=== PATIENT | female | born 1935 | race Caucasian/White ===

== ENCOUNTER 2016-11-12 10:48 | Day surgery (SDC) | payer MEDICARE, OTHER ==
[~2016-11-12 10:48] MED LIST: Acetaminophen TAB* 325 MG PO PRN; Buffered Lidocaine 0.9% SYRIN* 5 ML/SYR SYRINGE INTRADERM ONE
[2016-11-12] MEDS ORDERED: Midazolam* 1 MG/ML 2 ML VIAL (2 MG) ONE (11:57)
[2016-11-12 12:45] VITALS: BP 188/66
--- NOTE | 2016-11-12 13:24 | OP ---
DATE OF OPERATION: 11/12/2016 - [facility] DATE OF : 1935. SURGEON: Js Molina M.D. PREOPERATIVE DIAGNOSIS: Cataract left eye. POSTOPERATIVE DIAGNOSIS: Cataract left eye. OPERATIVE PROCEDURE: Phacoemulsification left eye with IOL. DESCRIPTION OF PROCEDURE: The patient was brought to the operating room after being given 1/2% Alcaine with epinephrine drops in the preoperative area. The eye was prepped and draped in the usual sterile fashion. Sterile drape and eyelid speculum were placed. Again, topical 1/2% Alcaine with epinephrine was given. A paracentesis incision was made at the 3 o'clock position with the No.75 blade. Clear cornea incision 2.2 x 2.2-mm was created at the 6 o'clock position starting at the anterior limbus using the 2.2-mm keratome. The anterior chamber was irrigated with 0.4 mL of 1% non-preservative intracameral lidocaine and filled with DisCoVisc. A capsulorrhexis was completed using the cystotome and the Utrata forceps. Hydrodissection was performed with balanced salt solution. The lens nucleus was removed with the Phacoemulsification handpiece without incident. Cortex was removed with the irrigation-aspiration handpiece. The capsular bag was re-inflated using DisCoVisc and an SN60WF 18.5 implant was inserted with the shooter. The irrigation-aspiration handpiece was used to remove all residual DisCoVisc. The eye was refilled with balanced salt solution and the wound checked and found to be watertight. Topical Maxitrol drops were given. [id number]/[facility] #: [id number] [facility]
[2016-11-12] MEDS ORDERED: Neomycin/Polymy/Dex OPTH.SUSP* MAXITROL 0.1% 5 ML ONE (14:02)
[2016-11-12] MEDS ORDERED: Proparacaine 0.5% OPHTH.SOL* 15 ML BTL ONE (14:02)
[2016-11-12] MEDS ORDERED: Ketorolac 0.5% OPHTH (NF) 0.5 % 5 ML BTL ONE (14:02)
[2016-11-12] MEDS ORDERED: Cyclopentolate 1% OPTH.SOL* 2 ML BTL ONE (14:02)
[2016-11-12] MEDS ORDERED: Phenylephrine 2.5% OPTH.SOL* 2 ML BTL ONE (14:02)
[2016-11-12] MEDS ORDERED: acetaZOLAMIDE TAB* 250 MG ONE (14:02)
[2016-11-12] MEDS ORDERED: Buffered Lidocaine 0.9% SYRIN* 5 ML/SYR SYRINGE ONE (14:02)
[2016-11-12] MEDS ORDERED: Lidocaine 1% MPF* 2 ML VIAL ONE (14:02)
[2016-11-12] MEDS ORDERED: Povidone Iodine 5% OPTH* 30 ML BTL ONE (14:02)
== END 2016-11-12 12:53 | disposition home or self-care (01) ==
LOC: OREAST 10:48
PROVIDERS: ATTEND Specialist
DX: H25.812 Combined forms of age-related cataract, left eye (principal); H34.8122 Central retinal vein occlusion, left eye, stable; H43.813 Vitreous degeneration, bilateral; I10 Essential (primary) hypertension; I48.91 Unspecified atrial fibrillation; I25.2 Old myocardial infarction; E03.9 Hypothyroidism, unspecified
CPT/HCPCS: A9270-GY; J2250; V2632

== ENCOUNTER 2019-10-18 21:18 | Observation (INO) ==
[2019-10-18 21:45] LABS: ABS Eosinophils 0.2 10^3/ul (0-0.6); ABS Lymphocytes 1.6 10^3/ul (1.0-4.8); ABS Monocytes 0.6 10^3/ul (0-0.8); ABS Neutrophils 2.4 10^3/ul (1.5-7.7); Eosinophil % 3.2 %; Hematocrit 38 % (35-47); Hemoglobin 12.8 g/dL (12.0-16.0); Lymphocyte % 33.8 %; Mean Corpuscular HGB Conc 34 g/dL (31-36); Mean Corpuscular Hemoglobin 32 pg (27-31); Mean Corpuscular Volume 93 fL (80-97); Mean Platelet Volume 8.1 fL (7.4-10.4); Platelet Count 253 10^3/uL (150-450); Red Blood Count 4.06 10^6 /uL (3.70-4.87); Red Cell Distribution Width 15 % (10-15); White Blood Count 4.8 10^3/uL (3.5-10.8)
[2019-10-18] MEDS: NS 0.9% 1000 ml BAG 1,000 ML IV SCH (21:56)
[2019-10-18 22:03] LABS: Albumin 3.4 g/dL (3.2-5.2); Albumin/Globulin Ratio 1.1 (1-3); C Reactive Protein 9.77 mg/L (<8.01); Calcium 9.3 mg/dL (8.6-10.3); EGFR African American 81.3 (>60); EGFR Non-African American 67.2 (>60); Globulin 3.1 g/dL (2-4); Total Bilirubin 0.2 mg/dL (0.2-1.0); Total Protein 6.5 g/dL (6.4-8.9)
[2019-10-18 22:04] LABS: Troponin I 0.01 ng/mL (<0.03)
[2019-10-18 22:07] LABS: Potassium 3.9 mmol/L (3.5-5.0)
[2019-10-18 22:39] LABS: TSH Ultra Thyroid Stim Horm 4.26 mcIU/mL (0.34-5.60)
[2019-10-19 02:46] LABS: Urine Appearance Cloudy; Urine Bilirubin Negative (Negative); Urine Blood Negative (Negative); Urine Color Yellow; Urine Glucose Negative (Negative); Urine Ketones Negative (Negative); Urine Nitrite Negative (Negative); Urine Protein Negative (Negative); Urine Specific Gravity 1.018 (1.010-1.030); Urine Urobilinogen Negative (Negative)
[2019-10-19 02:49] LABS: Urine Bacteria 1+ (Absent); Urine Red Blood Cell 2+(6-10/hpf) (Absent); Urine Squamous Epithelial Cell Present (Absent); Urine White Blood Cell 2+(11-20/hpf) (Absent)
[2019-10-19] MEDS: NS 0.9% 1000 ml BAG 1,000 ML IV SCH (05:35)
[2019-10-19] MEDS ORDERED: SOTALOL 120 MG PO SCH (09:00)
[2019-10-19] MEDS: CMCS:Dabigatran 150 mg CAP (NF) PO SCH ×2 (09:53→23:28)
[2019-10-19] MEDS: Aspirin EC 81 mg TAB.EC (enteric coated) PO SCH (09:53)
[2019-10-19] MEDS: Multivitamins/Minerals TAB PO SCH ×2 (09:53→21:52)
[2019-10-19] MEDS: Coenzyme Q10 CAP (NF) ** ENTER STREGNTH IN LABEL DIRECTIONS PO SCH (10:12)
[2019-10-19] MEDS: hydrALAZINE 20 mg/ml 1 ML Vial IV IV SLOW PU PRN (18:01)
[2019-10-19] MEDS ORDERED: Al Hydrox/Mg Hydrox/Simet LIQ 30 ML UDC PO ONE (18:34)
[2019-10-20] MEDS: hydrALAZINE 20 mg/ml 1 ML Vial IV IV SLOW PU PRN (03:33)
[2019-10-20 06:23] LABS: Hematocrit 34 % (35-47); Hemoglobin 11.8 g/dL (12.0-16.0); Mean Corpuscular HGB Conc 35 g/dL (31-36); Mean Corpuscular Hemoglobin 32 pg (27-31); Mean Corpuscular Volume 92 fL (80-97); Mean Platelet Volume 8.2 fL (7.4-10.4); Platelet Count 224 10^3/uL (150-450); Red Blood Count 3.74 10^6 /uL (3.70-4.87); Red Cell Distribution Width 14 % (10-15); White Blood Count 4.8 10^3/uL (3.5-10.8)
[2019-10-20 06:35] LABS: BUN/Creatinine Ratio 17.6 (8-20); Calcium 8.8 mg/dL (8.6-10.3); EGFR African American 90.3 (>60); EGFR Non-African American 74.6 (>60); Potassium 3.7 mmol/L (3.5-5.0)
[2019-10-20] MEDS ORDERED: hydrALAZINE 20 mg/ml 1 ML Vial IV IV SLOW PU ONE (08:00)
[2019-10-20] MEDS: CMCS:Dabigatran 150 mg CAP (NF) PO SCH (08:30)
[2019-10-20] MEDS: Multivitamins/Minerals TAB PO SCH (08:30)
[2019-10-20] MEDS: Aspirin EC 81 mg TAB.EC (enteric coated) PO SCH (08:34)
[2019-10-20] MEDS: Coenzyme Q10 CAP (NF) ** ENTER STREGNTH IN LABEL DIRECTIONS PO SCH (08:57)
[2019-10-20 11:19] VITALS: BP 150/69
[2019-10-20] MEDS ORDERED: Regadenoson 0.4 MG/5 ML SYRINGE ONE (11:23)
== END 2019-10-20 14:55 | disposition home or self-care (01) ==
LOC: MEDTELE 21:18 → ED 21:18 → MEDTELE 10-19 01:54
PROVIDERS: ADMIT Hospitalist; ATTEND Internal Medicine

== ENCOUNTER 2024-04-02 08:36 | Observation (INO) ==
[2024-04-02 09:11] LABS: ABS Basophils 0.1 10^3/uL (0.0-0.1); ABS Eosinophils 0.2 10^3/uL (0.0-0.5); ABS Lymphocytes 1.8 10^3/uL (1.0-4.8); ABS Monocytes 0.5 10^3/uL (0.0-0.9); ABS Neutrophils 2.6 10^3/uL (1.5-7.6); Eosinophil % 3.4 %; Hematocrit 39.7 % (35-45); Hemoglobin 13.4 g/dL (11.5-14.3); Lymphocyte % 34.8 %; Mean Corpuscular Hemoglobin 32.4 pg (27-33); Mean Corpuscular Hgb Conc 33.8 g/dL (31-36); Mean Corpuscular Volume 95.7 fL (80-97); Mean Platelet Volume 7.2 fL (7.5-11.2); Nucleated Red Blood Cells % 0.1 %/100WBC (0.0-0.8); Platelet Count 292 10^3/uL (150-450); Red Blood Count 4.15 10^6/uL (3.63-4.92); Red Cell Distribution Width 15.8 % (12-17); White Blood Count 5.2 10^3/uL (3.8-11.8)
[2024-04-02 09:20] LABS: INR 1.46 (0.85-1.14)
[2024-04-02 09:52] LABS: Albumin 3.2 g/dL (3.5-5.7); Albumin/Globulin Ratio 1.3 (1-3); Calcium 9.1 mg/dL (8.6-10.3); Creatinine, Serum 0.91 mg/dL (0.51-0.95); Globulin 2.4 g/dL (2-4); Magnesium 2.1 mg/dL (1.9-2.7); Total Bilirubin 0.6 mg/dL (0.2-1.0); Total Protein 5.6 g/dL (6.4-8.9); eGFR CKD-EPI 60.3 (>60)
[2024-04-02] MEDS: Furosemide 40 mg/4 ml IV VIAL IV SLOW PU ONE (10:22)
[2024-04-02 11:08] LABS: High Sensitivity Troponin 1 Hr 13 pg/mL (<15)
[2024-04-02] MEDS ORDERED: Sulfur Hexaflouride MICROSPHR 25 MG VIAL IV PRN (13:58)
[2024-04-02] MEDS: Furosemide 40 mg/4 ml IV VIAL IV ONE (18:02)
[2024-04-03 07:26] LABS: ABS Eosinophils 0.2 10^3/uL (0.0-0.5); ABS Lymphocytes 2.1 10^3/uL (1.0-4.8); ABS Monocytes 0.5 10^3/uL (0.0-0.9); ABS Neutrophils 1.6 10^3/uL (1.5-7.6); ABS Nucleated RBC 0.01 10^3/ul; Eosinophil % 4.3 %; Hematocrit 38.4 % (35-45); Lymphocyte % 46.2 %; Mean Corpuscular Hemoglobin 32.4 pg (27-33); Mean Corpuscular Hgb Conc 33.9 g/dL (31-36); Mean Corpuscular Volume 95.6 fL (80-97); Mean Platelet Volume 7.2 fL (7.5-11.2); Nucleated Red Blood Cells % 0.2 %/100WBC (0.0-0.8); Platelet Count 288 10^3/uL (150-450); Red Blood Count 4.02 10^6/uL (3.63-4.92); Red Cell Distribution Width 15.1 % (12-17); White Blood Count 4.5 10^3/uL (3.8-11.8)
[2024-04-03 07:41] LABS: Calcium 8.8 mg/dL (8.6-10.3); Creatinine, Serum 0.96 mg/dL (0.51-0.95); Magnesium 2.1 mg/dL (1.9-2.7); Potassium 3.4 mmol/L (3.5-5.0); eGFR CKD-EPI 56.6 (>60)
[2024-04-03] MEDS ORDERED: Albuterol 2.5mg/3 ml (0.083%) NEB.SOLN INH PRN (08:42)
[2024-04-03] MEDS: Potassium Chloride LIQUID 20 MEQ/15 ML LIQUID PO ONE (12:47)
[2024-04-04 07:53] LABS: ABS Basophils 0.1 10^3/uL (0.0-0.1); ABS Eosinophils 0.1 10^3/uL (0.0-0.5); ABS Lymphocytes 2.6 10^3/uL (1.0-4.8); ABS Monocytes 0.8 10^3/uL (0.0-0.9); ABS Neutrophils 3.4 10^3/uL (1.5-7.6); ABS Nucleated RBC 0.01 10^3/ul; Eosinophil % 1.8 %; Hematocrit 45.7 % (35-45); Hemoglobin 15.4 g/dL (11.5-14.3); Lymphocyte % 37.2 %; Mean Corpuscular Hemoglobin 32.4 pg (27-33); Mean Corpuscular Hgb Conc 33.7 g/dL (31-36); Mean Platelet Volume 7.3 fL (7.5-11.2); Nucleated Red Blood Cells % 0.2 %/100WBC (0.0-0.8); Platelet Count 365 10^3/uL (150-450); Red Blood Count 4.76 10^6/uL (3.63-4.92); Red Cell Distribution Width 15.5 % (12-17); White Blood Count 6.9 10^3/uL (3.8-11.8)
[2024-04-04 08:59] LABS: Calcium 9.2 mg/dL (8.6-10.3); Creatinine, Serum 1.07 mg/dL (0.51-0.95); Potassium 3.1 mmol/L (3.5-5.0); eGFR CKD-EPI 49.7 (>60)
[2024-04-04 19:57] LABS: T4, Total 11.69 mcg/dL (6.09-12.23)
[2024-04-05 06:23] LABS: Calcium 9.6 mg/dL (8.6-10.3); Creatinine, Serum 1.02 mg/dL (0.51-0.95); Potassium 3.3 mmol/L (3.5-5.0); eGFR CKD-EPI 52.6 (>60)
[2024-04-05 13:38] VITALS: BP 107/68
[2024-04-05 15:47] LABS: TSH Ultra Thyroid Stim Horm 20.07 mcIU/mL (0.34-5.60)
== END 2024-04-05 16:10 | disposition home or self-care (01) ==
LOC: EDHOLD 08:36 → ED 08:36 → SUATTDRO 14:05 → MEDTELE 16:46
PROVIDERS: ADMIT Internal Medicine; ATTEND Internal Medicine

== ENCOUNTER 2024-04-15 08:19 | Inpatient (IN) ==
[2024-04-15] MEDS: Metoprolol Tartrate 5 mg VIAL 5 ml VIAL (1 mg/ml) IV ONE (08:38)
[2024-04-15 08:48] LABS: ABS Basophils 0.1 10^3/uL (0.0-0.1); ABS Lymphocytes 2.1 10^3/uL (1.0-4.8); ABS Monocytes 0.7 10^3/uL (0.0-0.9); ABS Neutrophils 5.8 10^3/uL (1.5-7.6); Eosinophil % 0.5 %; Hematocrit 42.1 % (35-45); Hemoglobin 14.1 g/dL (11.5-14.3); Lymphocyte % 24.1 %; Mean Corpuscular Hemoglobin 32.4 pg (27-33); Mean Corpuscular Hgb Conc 33.5 g/dL (31-36); Mean Corpuscular Volume 96.6 fL (80-97); Mean Platelet Volume 7.5 fL (7.5-11.2); Platelet Count 319 10^3/uL (150-450); Red Blood Count 4.36 10^6/uL (3.63-4.92); Red Cell Distribution Width 15.8 % (12-17); White Blood Count 8.8 10^3/uL (3.8-11.8)
[2024-04-15 08:56] LABS: INR 1.44 (0.85-1.14)
[2024-04-15 09:06] LABS: Albumin 3.5 g/dL (3.5-5.7); Albumin/Globulin Ratio 1.3 (1-3); Calcium 9.4 mg/dL (8.6-10.3); Creatinine, Serum 1.13 mg/dL (0.51-0.95); Globulin 2.7 g/dL (2-4); Total Bilirubin 0.7 mg/dL (0.2-1.0); Total Protein 6.2 g/dL (6.4-8.9); eGFR CKD-EPI 46.5 (>60)
[2024-04-15 09:17] LABS: Magnesium 2.2 mg/dL (1.9-2.7)
[2024-04-15 09:33] LABS: TSH Ultra Thyroid Stim Horm 11.23 mcIU/mL (0.34-5.60)
[2024-04-15 10:18] LABS: High Sensitivity Troponin 1 Hr 9 pg/mL (<15)
[2024-04-15 15:46] LABS: Ferritin 33.7 ng/mL (11-307)
[2024-04-15] MEDS: Amiodarone 400 mg TAB PO SCH (15:57)
[2024-04-15] MEDS: Furosemide 40 mg/4 ml IV VIAL IV SLOW PU ONE (15:57)
[2024-04-15] MEDS: Multivitamins/Mins AREDS2 (NF) CAP PO SCH (23:08)
[2024-04-16 06:27] LABS: ABS Basophils 0.1 10^3/uL (0.0-0.1); ABS Eosinophils 0.1 10^3/uL (0.0-0.5); ABS Monocytes 0.7 10^3/uL (0.0-0.9); ABS Neutrophils 4.4 10^3/uL (1.5-7.6); ABS Nucleated RBC 0.02 10^3/ul; Eosinophil % 0.9 %; Hematocrit 39.6 % (35-45); Hemoglobin 13.1 g/dL (11.5-14.3); Lymphocyte % 28.1 %; Mean Corpuscular Hemoglobin 31.6 pg (27-33); Mean Corpuscular Hgb Conc 33.1 g/dL (31-36); Mean Corpuscular Volume 95.6 fL (80-97); Mean Platelet Volume 7.9 fL (7.5-11.2); Nucleated Red Blood Cells % 0.3 %/100WBC (0.0-0.8); Platelet Count 294 10^3/uL (150-450); Red Blood Count 4.14 10^6/uL (3.63-4.92); Red Cell Distribution Width 15.7 % (12-17); White Blood Count 7.2 10^3/uL (3.8-11.8)
[2024-04-16 06:45] LABS: Albumin 3.3 g/dL (3.5-5.7); Albumin/Globulin Ratio 1.3 (1-3); Calcium 9.3 mg/dL (8.6-10.3); Creatinine, Serum 0.99 mg/dL (0.51-0.95); Globulin 2.5 g/dL (2-4); Magnesium 2.2 mg/dL (1.9-2.7); Potassium 3.7 mmol/L (3.5-5.0); Total Bilirubin 0.7 mg/dL (0.2-1.0); Total Protein 5.8 g/dL (6.4-8.9); eGFR CKD-EPI 54.5 (>60)
[2024-04-16] MEDS: Calcium/Vitamin D TAB 250/125 TAB PO SCH (09:53)
[2024-04-16] MEDS ORDERED: Sulfur Hexaflouride MICROSPHR 25 MG VIAL IV PRN (09:53)
[2024-04-16] MEDS: Ferric Gluconate IV 250 MG in NS 0.9% 250 ml 200 ML IVPB SCH (10:30)
[2024-04-16] MEDS: Potassium Chlor 10 meq TAB PO ONE (10:30)
[2024-04-16 11:06] LABS: Folate 17.21 ng/mL (5.90-24.80)
[2024-04-17 07:03] LABS: Hematocrit 38.3 % (35-45); Hemoglobin 12.9 g/dL (11.5-14.3); Mean Corpuscular Hemoglobin 32.3 pg (27-33); Mean Corpuscular Hgb Conc 33.7 g/dL (31-36); Mean Corpuscular Volume 95.8 fL (80-97); Platelet Count 256 10^3/uL (150-450); Red Cell Distribution Width 15.8 % (12-17); White Blood Count 5.3 10^3/uL (3.8-11.8)
[2024-04-17 07:35] LABS: Calcium 8.8 mg/dL (8.6-10.3); Creatinine, Serum 0.97 mg/dL (0.51-0.95); Magnesium 2.1 mg/dL (1.9-2.7); Potassium 4.3 mmol/L (3.5-5.0); eGFR CKD-EPI 55.9 (>60)
[2024-04-17] MEDS ORDERED: Regadenoson 0.4 MG/5 ML SYRINGE ONE (10:21)
[2024-04-17] MEDS ORDERED: Aminophylline 25 MG/ML VIAL ONE (10:21)
[2024-04-17 14:14] VITALS: BP 145/110
== END 2024-04-17 17:18 | disposition home health service (06) | DRG 291 ==
LOC: ED 08:19 → EDHOLD 10:56 → MEDTELE 12:31
PROVIDERS: ADMIT Hospitalist; ATTEND Hospitalist